=== PATIENT | male | born 1985 | race Two or more races ===

== ENCOUNTER 2019-05-28 15:29 | Emergency (ER) | payer MEDICAID ==
[~2019-05-28] VITALS: Ht 172.7 cm; Wt 84.0 kg
[2019-05-28 15:32] VITALS: BP 105/87
== END 2019-05-28 17:24 | disposition home or self-care (01) ==
LOC: ER 15:30
DX: M79.641 Pain in right hand (principal); W21.01XA Struck by football, initial encounter; Y93.61 Activity, american tackle football; Y92.89 Other specified places as the place of occurrence of the external cause; Y99.8 Other external cause status
CPT/HCPCS: 73130; 99283